=== PATIENT | female | born 1985 | race American Indian/Alaskan Native ===

== ENCOUNTER 2017-10-09 22:22 | Emergency (ER) | payer MEDICAID ==
[2017-10-09] MEDS ORDERED: ASPIRIN PO ONE (23:05)
--- NOTE | 2017-10-09 23:38 | XRay Report ---
FINAL REPORT PROCEDURE: XR CHEST ROUTINE 2V TECHNIQUE: PA and lateral chest radiographs were obtained. CPT 85900 HISTORY: c/p COMPARISON: No prior studies are available for comparison. FINDINGS: Heart: Normal. Mediastinum/Vessels: Normal. Lungs/Pleural space: Lungs are hyperinflated. There are no confluent infiltrates or mass lesions. Pleural spaces are clear.. Bony thorax: No acute osseous abnormality. Other: IMPRESSION: Hyperinflated lungs. No acute pulmonary process. .
[2017-10-09 23:41] LABS: Hematocrit 29.1 % (30.3-42.9); Hemoglobin 9.5 gm/dl (10.1-14.3); Mean Corpuscular HGB Conc 33 % (30-34); Mean Corpuscular Volume 76 fl (79-97); Platelet Count 264 K/mm3 (140-440); Red Blood Count 3.82 M/mm3 (3.65-5.03); Red Cell Distribution Width 16.5 % (13.2-15.2)
[2017-10-10 00:02] LABS: Mean Corpuscular Hemoglobin 25 pg (28-32)
[2017-10-10 00:16] LABS: BUN/Creatinine Ratio 16; Blood Urea Nitrogen 8 mg/dL (7-17); Calcium 9.6 mg/dL (8.4-10.2); Hemolysis Index 4
[2017-10-10] MEDS ORDERED: ROXICODONE PO ONE (00:19)
[2017-10-10] MEDS ORDERED: NACL 0.9% 1000 ML 1,000 ML IV ONE (00:41)
[2017-10-10] MEDS ORDERED: MORPHINE IV ONE ×2 (00:41→04:13)
--- NOTE | 2017-10-10 00:57 | Emergency Department Report ---
HPI - General Chief Complaint: Fall Time Seen by Provider: 10/10/17 00:40 - HPI HPI: 32-year-old female presents to the emergency department with a few different complaints. Her main complaint is pain to the left upper chest and/ or chest wall after the patient tripped on some pavement earlier and fell flat on her chest. She says she actually rolled at that time and has some pain to the head and the upper left back as well. She denies any loss of consciousness. The back pain is towards the left scapula. 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 She has a history of Marfan syndrome. She does not have a primary care physician. 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 She did not take anything for her symptoms prior to presentation. ED Past Medical Hx - Past Medical History Previous Medical History?: Yes Additional medical history: blindness due to injury and unsuccessful surgery. Marfan's. hole to arota. - Surgical History Additional Surgical History: eye surgery, bilateral knee ACL - Social History Smoking Status: Never Smoker Substance Use Type: Alcohol - Medications Home Medications: Home Medications Medication Instructions Recorded Confirmed Last Taken Type traMADol [Ultram 50 MG tab] 50 mg PO Q6HR PRN #12 tablet 10/10/17 Unknown Rx ED Review of Systems ROS: Stated complaint: FALL,CHEST PAIN Other details as noted in HPI Comment: All other systems reviewed and negative Constitutional: denies: chills, fever Eyes: denies: eye pain, eye discharge ENT: denies: ear pain, throat pain Respiratory: denies: cough, shortness of breath, wheezing Cardiovascular: chest pain. denies: palpitations Gastrointestinal: denies: abdominal pain, nausea, diarrhea Genitourinary: denies: urgency, dysuria, discharge Musculoskeletal: back pain, arthralgia Skin: denies: rash, lesions Neurological: headache. denies: numbness Physical Exam - Physical Exam Vital Signs: Vital Signs 10/09/17 10/10/17 22:24 00:12 Temperature 98.4 F Pulse Rate 92 H 98 H Respiratory 20 28 H Rate Blood Pressure 106/67 124/75 O2 Sat by Pulse 99 Oximetry Physical Exam: GENERAL: The patient is well-developed well-nourished. HENT: Normocephalic. Atraumatic. Patient has moist mucous membranes. EYES: Extraocular motions are intact. NECK: Supple. Trachea is midline. CHEST/LUNGS: Clear to auscultation. There is no respiratory distress noted. There is some reproducible tenderness palpation to the left upper chest wall where there is a small amount of swelling. HEART/CARDIOVASCULAR: Regular. There is no tachycardia. There is no murmur. ABDOMEN: Abdomen is soft, nontender. Patient has normal bowel sounds. There is no abdominal distention. SKIN: There is some mild ecchymosis behind the left ear. Skin is warm and dry. NEURO: The patient is awake, alert, and oriented. The patient is cooperative. The patient has no focal neurologic deficits. The patient has normal speech and gait. MUSCULOSKELETAL: There is no tenderness. Patient has very long arms and legs and a thin elongated habitus consistent with her Marfan syndrome. There is tenderness palpation along the left scapular spine and the thoracic paraspinal medial to this. ED Course Vital Signs 10/09/17 10/10/17 22:24 00:12 Temperature 98.4 F Pulse Rate 92 H 98 H Respiratory 20 28 H Rate Blood Pressure 106/67 124/75 O2 Sat by Pulse 99 Oximetry ED Medical Decision Making - Lab Data Result diagrams: 10/09/17 23:29 10/09/17 23:29 - EKG Data -: EKG Interpreted by Me EKG shows normal: sinus rhythm, axis, intervals, QRS complexes, ST-T waves Rate: normal - EKG Data When compared to previous EKG there are: previous EKG unavailable Interpretation: normal EKG - Radiology Data Radiology results: report reviewed, image reviewed interpreted by me: X-ray of the chest shows some hyperinflation of lungs but otherwise no acute process including no widened mediastinum. X-ray of the left scapula does not show any obvious fracture, dislocation or any acute process. EXAM: CT HEAD/BRAIN WO CON HISTORY: Headache FALL TECHNIQUE: Routine axial imaging was obtained of the brain without IV contrast. There are no previous studies available for comparison. FINDINGS: There is no evidence of acute stroke or hemorrhage. The ventricular system is appropriate in size and is symmetric. The basal cisterns appear normal. The visualized sinuses are clear. The mastoid air cells are well pneumatized. The calvarium appears intact. The intraorbital structures reveal diffuse bilateral calcifications of both globes with sclerotic changes of both globes. IMPRESSION: No acute intracranial process. Transcribed By: RB Dictated By: SUYAPA RAE MD Electronically Authenticated By: SUYAPA RAE MD Signed Date/Time: 10/10/177 EXAM: CT ANGIO CHEST HISTORY: CP FALL TECHNIQUE: A CT angiogram was obtained of the thorax following the intravenous injection of 100 cc of Omnipaque 350. Rotational, sagittal, and coronal MIP reconstructions were reviewed. FINDINGS: There is no evidence of pulmonary embolus or aortic dissection. There is aneurysmal dilatation of the proximal descending aorta measuring 3.8 cm in diameter. The heart size is normal. Pericardial fluid is not seen. The lungs are clear. The lungs are not congested. Pleural fluid is not seen. There is no evidence of adenopathy. At the thoracic inlet the thyroid gland appears normal. The skeletal structures are well-maintained. In the upper abdomen the adrenal glands are not enlarged. IMPRESSION: No evidence of pulmonary embolus or aortic dissection. No acute process in the chest. Aneurysmal dilatation of the proximal descending aorta measuring 3.8 cm in diameter. Transcribed By: RB Dictated By: SUYAPA RAE MD Electronically Authenticated By: SUYAPA RAE MD Signed Date/Time: 10/10/17 0242 - Medical Decision Making This patient presents with the main complaints of left upper chest/chest wall pain, left upper back pain around the scapula and a headache. She had a fall in which she rolled and hit all these areas and also hit her head in the bathroom. EKG did not show any signs of ST elevation MO or significant dysrhythmia. Her labs appeared unremarkable with negative troponins 2. Despite her Marfan syndrome, she is still low risk for coronary artery disease/ MO. Chest x-ray was done that does not show any widened mediastinum, obvious rib fractures, pneumothorax or any other acute process. X-ray of the left scapula does not show any fracture, dislocation or any acute process. CT head did not show any bleed, shift, mass or any acute process. CT angiography of the chest does not show any pulmonary embolism or dissection. However it does show a descending thoracic aortic aneurysm of 3.8 cm. the patient was not aware that she had a thoracic aneurysm. Using up to date, I read some of the data and studies regarding descending thoracic aortic aneurysm size in relation to elective versus emergent repair. The studies appear to show that genetically mediated aneurysms such as with Marfan's may need repair when they are larger than 5 cm in the descending thoracic aorta or it may need to be done at 4.5 cm if there is family history of rupture or the patient is higher risk. In this patient she has a higher risk but her aneurysm currently is 3.8 cm. Since the patient is feeling better and the rest of the workup has been benign, I feel that the patient is safe for discharge home at this time. However we had a long discussion about the need to follow-up with a cardiothoracic surgeon for evaluation of this aneurysm and that she will need to go to the closest emergency department with any increased chest pain, shortness of breath or with any acute distress. They were given a copy of the CT results to bring with them for their appointment. They said that they are able to find the appropriate physician through [facility], [place] or [place]. She was prescribed something for pain. - Differential Diagnosis MO, rib fracture, pneumothorax, dissection Critical Care Time: No Critical care attestation.: If time is entered above; I have spent that time in minutes in the direct care of this critically ill patient, excluding procedure time. ED Disposition Clinical Impression: Chest wall pain, Descending thoracic aortic aneurysm, Pain of left scapula Thoracic aneurysm without mention of rupture Qualifiers: Presence of rupture: without rupture Qualified Code(s): I71.2 - Thoracic aortic aneurysm, without rupture Fall Qualifiers: Encounter type: initial encounter Qualified Code(s): W19.XXXA - Unspecified fall, initial encounter Head injury Qualifiers: Encounter type: initial encounter Qualified Code(s): S09.90XA - Unspecified injury of head, initial encounter Disposition: TO HOME OR SELFCARE Is pt being admited?: No Condition: Stable Instructions: Chest Pain (ED), Costochondritis (ED), Thoracic Aortic Aneurysm ( ED), Back Pain (ED) Additional Instructions: Please follow-up with your director talent and primary care physician. Please make sure to follow-up with a cardiothoracic surgeon regarding your descending thoracic aneurysm. Return to the emergency Department with any worsening of your symptoms or any acute distress. You have been prescribed a medication that is sedating and therefore should not be taken prior to driving, working, and responsible for children and in no way should be mixed with alcohol of any quantity. Prescriptions: traMADol [Ultram 50 MG tab] 50 mg PO Q6HR PRN #12 tablet PRN Reason: Pain Referrals: LETTY ARREDONDO RN [Primary Care Provider] - 3-5 Days Time of Disposition: 04:07
[2017-10-10] MEDS ORDERED: ZOFRAN ONE (01:39)
[2017-10-10] MEDS ORDERED: ZOFRAN IV ONE (01:40)
[2017-10-10 02:06] LABS: Band Neutrophils # (Manual) 0.1 K/mm3; Basophils % (Manual) 0 % (0.0-1.8); Eosinophils % (Manual) 0 % (0.0-4.3); Hypochromasia 1+; Total Cells Counted 100
--- NOTE | 2017-10-10 02:06 | XRay Report ---
FINAL REPORT EXAM: XR SCAPULA LT HISTORY: left scapula pain TECHNIQUE: 2 views of the left scapula PRIORS: None. FINDINGS: The bones are normally mineralized. There is no evidence of acute fracture. The glenohumeral and acromioclavicular joints are normally aligned. The soft tissues are unremarkable. IMPRESSION: Normal left scapula.
[2017-10-10 02:07] LABS: Platelet Estimate Consistent w Auto
--- NOTE | 2017-10-10 02:42 | Cat Scan Report ---
FINAL REPORT EXAM: CT HEAD/BRAIN WO CON HISTORY: Headache FALL TECHNIQUE: Routine axial imaging was obtained of the brain without IV contrast. There are no previous studies available for comparison. FINDINGS: There is no evidence of acute stroke or hemorrhage. The ventricular system is appropriate in size and is symmetric. The basal cisterns appear normal. The visualized sinuses are clear. The mastoid air cells are well pneumatized. The calvarium appears intact. The intraorbital structures reveal diffuse bilateral calcifications of both globes with sclerotic changes of both globes. IMPRESSION: No acute intracranial process.
--- NOTE | 2017-10-10 02:47 | Cat Scan Report ---
FINAL REPORT EXAM: CT ANGIO CHEST HISTORY: CP FALL TECHNIQUE: A CT angiogram was obtained of the thorax following the intravenous injection of 100 cc of Omnipaque 350. Rotational, sagittal, and coronal MIP reconstructions were reviewed. FINDINGS: There is no evidence of pulmonary embolus or aortic dissection. There is aneurysmal dilatation of the proximal descending aorta measuring 3.8 cm in diameter. The heart size is normal. Pericardial fluid is not seen. The lungs are clear. The lungs are not congested. Pleural fluid is not seen. There is no evidence of adenopathy. At the thoracic inlet the thyroid gland appears normal. The skeletal structures are well-maintained. In the upper abdomen the adrenal glands are not enlarged. IMPRESSION: No evidence of pulmonary embolus or aortic dissection. No acute process in the chest. Aneurysmal dilatation of the proximal descending aorta measuring 3.8 cm in diameter.
[2017-10-10 04:37] VITALS: BP 121/78
== END 2017-10-10 04:42 | disposition home or self-care (01) ==
LOC: EDSEX → EDBD → ED 22:22
DX: S09.90XA Unspecified injury of head, initial encounter (principal); I71.2 Thoracic aortic aneurysm, without rupture; R07.89 Other chest pain; M25.512 Pain in left shoulder; H54.8 Legal blindness, as defined in USA; Z88.6 Allergy status to analgesic agent; W01.0XXA Fall on same level from slipping, tripping and stumbling without subsequent striking against object, initial encounter; Y93.89 Activity, other specified; Y99.8 Other external cause status; Y92.89 Other specified places as the place of occurrence of the external cause
CPT/HCPCS: 36415; 70450; 71046; 71275; 73010; 80048; 84484; 85007; 85025; 93005; 93010; 96361; 96374; 96375; 96376; 99285; J2270; J2405; J7030; Q9967